=== PATIENT | female | born 1975 | race Caucasian/White ===

== ENCOUNTER 2017-10-12 07:43 | Observation (INO) | payer MEDICARE, OTHER ==
[2017-10-12 10:21] LABS: ADD MAN DIFF? NO
[2017-10-12 10:23] LABS: WHITE BLOOD COUNT 8.4 10^3/ul (4.8-10.8)
[2017-10-12 10:23] LABS: BASOPHIL # 0.1 10^3/ul (0.0-0.1); BASOPHILS % 0.7 % (0.0-2.0); EOSINOPHILS # 0.2 10^3/ul (0.0-0.5); EOSINOPHILS % 2.6 % (0.0-7.0); HEMATOCRIT 32.9 % (37.0-47.0); HEMOGLOBIN 10.6 g/dl (12.0-16.0); LYMPHOCYTES # 1.8 10^3/ul (0.8-2.9); LYMPHOCYTES % 21.8 % (15.0-51.0); MEAN CORPUSCULAR HEMOGLOBIN 30.7 pg (29.0-33.0); MEAN CORPUSCULAR HGB CONC 32.2 g/dl (32.0-37.0); MEAN CORPUSCULAR VOLUME 95.4 fl (82.0-101.0); MEAN PLATELET VOLUME 10.5 fl (7.4-10.4); MONOCYTE # 0.7 10^3/ul (0.3-0.9); MONOCYTES % 8.8 % (0.0-11.0); NEUTROPHIL # 5.5 10^3/ul (1.6-7.5); NEUTROPHILS % 65.9 % (39.0-77.0); PLATELET COUNT 188 10^3/UL (140-415); RED BLOOD COUNT 3.45 10^6/ul (4.20-5.40); RED CELL DISTRIBUTION WIDTH 12.6 % (11.5-14.5)
[2017-10-12 10:54] LABS: INR 0.97
[2017-10-12 10:55] LABS: PARTIAL THROMBOPLASTIN TIME 32.8 Sec (25.0-35.0)
[2017-10-12 10:58] LABS: ANION GAP 17 (8-16); BLOOD UREA NITROGEN 81 mg/dl (7-20); CALCIUM 9.5 mg/dl (8.4-10.2); CARBON DIOXIDE 25 mmol/L (21-31); CHLORIDE 98 mmol/L (97-110); CREATININE 3.75 mg/dl (0.44-1.00); GLUCOSE 86 mg/dl (70-220); POTASSIUM 4.6 mmol/L (3.5-5.1); SODIUM 135 mmol/L (135-144)
[2017-10-12 11:20] LABS: TROPONIN-I < 0.012 ng/ml (0.00-0.12)
[2017-10-12] MEDS ORDERED: ACETAMINOPHEN 325 MG TAB PO (13:00)
[2017-10-12] MEDS ORDERED: ONDANSETRON 4 MG INJ IV ×2 (13:00→16:30)
[2017-10-12] MEDS ORDERED: ACETAMINOPHEN 500 MG TAB PO (16:30)
[2017-10-12] MEDS ORDERED: DOCUSATE SODIUM 100 MG CAP PO (16:30)
[2017-10-12] MEDS ORDERED: TOPIRAMATE SPRINKLE 25 MG CAP PO (16:30)
[2017-10-12] MEDS ORDERED: NACL 0.9% 3 ML SYG IV (16:30)
[2017-10-12] MEDS ORDERED: MAGNESIUM HYDROXIDE 30ML CUP PO (16:30)
[2017-10-12] MEDS ORDERED: BISACODYL (EC) 5 MG TAB PO (16:30)
[2017-10-12] MEDS ORDERED: LATANOPROST 0.005% 2.5 ML OPH BOTH EYES (21:00)
[2017-10-12] MEDS: ACETAMINOPHEN 325 MG TAB PO (21:05)
[2017-10-12] MEDS: LATANOPROST 0.005% 2.5 ML OPH BOTH EYES (21:08)
[2017-10-12] MEDS: BENAZEPRIL 10 MG TAB PO (21:09)
[2017-10-12] MEDS: HYDROXYCHLOROQUINE 200 MG TAB PO (21:09)
[2017-10-12] MEDS: MYCOPHENOLATE 250 MG CAP PO (21:14)
[2017-10-13] MEDS: DEXTROSE 5%-0.45% NACL 1,000 ML IV (00:34)
[2017-10-13] MEDS ORDERED: CEFAZOLIN 1 GM INJ (07:00)
[2017-10-13] MEDS: BENAZEPRIL 10 MG TAB PO ×2 (09:00→21:00)
[2017-10-13] MEDS ORDERED: PROPOFOL 20 ML (09:41)
[2017-10-13] MEDS ORDERED: ROPIVACAINE 0.5 % 30 ML VIAL (09:41)
[2017-10-13] MEDS ORDERED: MIDAZOLAM 1 MG/ML 2 ML INJ (09:41)
[2017-10-13] MEDS ORDERED: FENTAnyl 50 MCG/ML VIAL (09:41)
[2017-10-13] MEDS ORDERED: PHENYLephrine (100 MCG/ML) 5ML SYG ×2 (10:00→10:41)
[2017-10-13] MEDS: GELATIN SIZE 100 SPONGE (10:08)
[2017-10-13] MEDS: HEPARIN 1000 UNITS/ML 10 ML INJ (10:08)
[2017-10-13] MEDS: LIDOCAINE 1% (MPF) 30 ML INJ (10:08)
[2017-10-13] MEDS: THROMBIN 5000 UNIT VIAL (10:08)
[2017-10-13] MEDS: IOHEXOL 300MG/ML 30 ML BTL ×2 (10:12→11:00)
[2017-10-13] MEDS ORDERED: DEXAMETHASONE 4 MG/ML 1 ML INJ (11:02)
[2017-10-13] MEDS ORDERED: METOCLOPRAMIDE 10 MG INJ (11:02)
[2017-10-13] MEDS ORDERED: ONDANSETRON 4 MG INJ (11:02)
[2017-10-13] MEDS ORDERED: morphine (1 MG/ML) 10ML SYRINGE IV ×3 (11:30)
[2017-10-13] MEDS ORDERED: LABETALOL HCL 20MG INJ IV (11:30)
[2017-10-13] MEDS ORDERED: FENTAnyl 50 MCG/ML VIAL IV ×3 (11:30)
[2017-10-13] MEDS ORDERED: DIPHENHYDRAMINE 50 MG INJ IV (11:30)
[2017-10-13] MEDS ORDERED: MEPERIDINE 25 MG INJ IV (11:30)
[2017-10-13] MEDS ORDERED: ONDANSETRON 4 MG INJ IV (11:30)
[2017-10-13] MEDS ORDERED: METOCLOPRAMIDE 10 MG INJ IV (11:30)
[2017-10-13] MEDS ORDERED: hydrALAzine 20 MG INJ IV (11:30)
[2017-10-13] MEDS ORDERED: EPHEDrine SULFATE 50 MG/5 ML SYG IV (11:30)
[2017-10-13] MEDS: predniSONE 1 MG TAB PO (14:35)
[2017-10-13] MEDS: MYCOPHENOLATE 250 MG CAP PO ×2 (14:35→21:22)
[2017-10-13] MEDS: MULTIVIT/CA CARB/B CMPLX/FA TAB PO (14:35)
[2017-10-13] MEDS: HYDROXYCHLOROQUINE 200 MG TAB PO ×2 (14:35→21:22)
[2017-10-13] MEDS: FOLIC ACID 1 MG TAB PO (14:35)
[2017-10-13] MEDS: LATANOPROST 0.005% 2.5 ML OPH BOTH EYES ×2 (21:00→23:33)
[2017-10-14] MEDS: DEXTROSE 5%-0.45% NACL 1,000 ML IV (00:05)
[2017-10-14] MEDS: BENAZEPRIL 10 MG TAB PO (08:00)
[2017-10-14] MEDS: HYDROXYCHLOROQUINE 200 MG TAB PO (08:57)
[2017-10-14] MEDS: MYCOPHENOLATE 250 MG CAP PO (08:57)
[2017-10-14] MEDS: predniSONE 1 MG TAB PO (08:57)
[2017-10-14] MEDS: MULTIVIT/CA CARB/B CMPLX/FA TAB PO (08:57)
[2017-10-14] MEDS: FOLIC ACID 1 MG TAB PO (08:57)
== END 2017-10-14 16:00 | disposition home or self-care (01) ==
LOC: MS2 10-13 06:09 → E/R 07:43 → MS3 13:06
DX: T82.868A Thrombosis due to vascular prosthetic devices, implants and grafts, initial encounter (principal); I12.0 Hypertensive chronic kidney disease with stage 5 chronic kidney disease or end stage renal disease; N18.6 End stage renal disease; Z99.2 Dependence on renal dialysis; Z98.51 Tubal ligation status; M34.9 Systemic sclerosis, unspecified; Y83.2 Surgical operation with anastomosis, bypass or graft as the cause of abnormal reaction of the patient, or of later complication, without mention of misadventure at the time of the procedure; Y92.9 Unspecified place or not applicable; Z83.3 Family history of diabetes mellitus
CPT/HCPCS: 36415; 71010; 73060; 80048; 84484; 85025; 85610; 85730; 90935; 93005; 99217; 99285-25